=== PATIENT | female | born 1950 | race Caucasian/White ===

== ENCOUNTER 2019-11-27 23:54 | Emergency (ER) | payer MEDICARE, SELFPAY ==
--- NOTE | ~2019-11-27 | XR_ITS ---
EXAMINATION: XR ankle LT min 3V DATE: 11/28/2019 01:34 INDICATION: Left ankle pain. Fall. TECHNIQUE: 4 views of left ankle were obtained. COMPARISON: None. FINDINGS: Bone alignment is normal. No acute fracture. There are osteochondral lesions of medial and lateral aspects of the talar dome. There is mild midfoot osteoarthritis. There are enthesophytes at t he posterior and plantar aspects of calcaneal tuberosity and at lateral malleolus. IMPRESSION: 1. Osteochondral lesions of the talar dome. 2. Mild midfoot osteoarthritis. Reviewed, dictated and finalized at location A.
--- NOTE | ~2019-11-27 | XR_ITS ---
EXAMINATION: XR wrist LT min 3V DATE: 11/28/2019 00:58 INDICATION: Left wrist pain. Fall. TECHNIQUE: 4 views of left wrist were obtained. COMPARISON: None. FINDINGS: Bone alignment is normal. No fracture. There is mild osteoarthritis of distal radioulnar flaca int, triscaphe joint, and first carpometacarpal joint. There is mild osteoarthritis of first metacarp ophalangeal joint and moderate osteoarthritis of first interphalangeal joint. IMPRESSION: 1. Polyarticular osteoarthritis. Reviewed, dictated and finalized at location A.
--- NOTE | ~2019-11-27 | XR_ITS ---
EXAMINATION: XR knee RT min 4V DATE: 11/28/2019 00:57 INDICATION: Right knee pain and swelling. Fall. TECHNIQUE: 4 views of right knee were obtained. COMPARISON: None. FINDINGS: Bone alignment is normal. No fracture. There is mild tricompartmental osteoarthritis. No kn ee joint effusion. There is medial soft tissue swelling. IMPRESSION: 1. Mild right knee osteoarthritis. Reviewed, dictated and finalized at location A.
--- NOTE | ~2019-11-27 | CT_ITS ---
EXAMINATION: CT brain wo con DATE: 11/28/2019 00:46 INDICATION: Head injury. TECHNIQUE: Computed tomography (CT) of the head was performed without intravenous contrast. The mA wa s adjusted according to patient size. Iterative reconstruction technique was employed. The dose-lengt h product was 605.33 mGy-cm. COMPARISON: None FINDINGS: There is no intracranial hemorrhage, acute infarction, or abnormal intracranial mass lesion . The ventricles are normal in size. There are likely changes of ocular lens replacement surgeries. T here is left periorbital soft tissue swelling with hematoma. The mastoid air cells are normal. IMPRESSION: 1. Normal brain. 2. Left periorbital soft tissue swelling with hematoma. No orbital involvement. Reviewed, dictated and finalized at location A.
[2019-11-27 23:57] VITALS: BP 218/78; PULSE 73; RESP 14; TEMP 36.6; O2SAT 99
[2019-11-28 00:09] VITALS: RESP 18; O2SAT 99
--- NOTE | 2019-11-28 00:18 | ED.FALL ---
HPI - Fall General Chief Complaint: Fall Stated Complaint: fall Time Seen by Provider: 11/28/19 00:10 Source: RN notes reviewed History of Present Illness HPI Narrative: Patient presents emergency department from home for fall. Patient states approximately 3 minutes prior to arrival she was walking her garage when she tripped over a rope. States that time she fell to the ground striking the left side of her head. Denies any loss of consciousness but notes a laceration over her left eyebrow as well as pain to her left wrist and right knee. Patient states she was aspirating 1 mg denies any blood thinner use denies any chest pain shortness of breath abdominal pain nausea vomiting numbness or tingling in the extremities or any other symptoms Related Data Home Medications Medication Instructions Recorded Confirmed aspirin [Adult Low Dose Aspirin] 81 mg PO DAILY 04/14/19 04/14/19 budesonide-formoterol [Symbicort] 2 puff INHALATION Q12H 04/14/19 04/14/19 insulin glargine [Lantus U-100 25 unit SUBCUT HS 04/14/19 04/14/19 Insulin] insulin lispro [Humalog U-100 1 sliding scale dose SUBCUT 04/14/19 04/14/19 Insulin] USEASDIRECTD losartan 100 mg PO DAILY 04/14/19 04/14/19 nebivolol [Bystolic] 10 mg PO DAILY 04/14/19 04/14/19 pantoprazole 40 mg PO QAM 04/14/19 04/14/19 simvastatin 10 mg PO DAILY 04/14/19 04/14/19 Allergies Allergy/AdvReac Type Severity Reaction Status Date / Time No Known Allergies Allergy Verified 11/28/19 00:07 Review of Systems Review of Systems: Narrative: Gen.: Denies fevers or chills Eyes: Denies eye pain or visual change ENT: Denies epistaxis Respiratory: Denies shortness of breath or cough CV: Denies chest pain or palpitations GI: Denies abdominal pain nausea, emesis or diarrhea Musculoskeletal: See HPI Neuro: Denies numbness, tingling, weakness or focal weakness denies loss of consciousness Skin: Denies rash Except as documented, all other systems reviewed and negative FORMERLY [facility], [facility] Past Medical History Medical History (Updated 11/28/19 @ 04:00 by Dominick Donnelly DO) Diabetes mellitus Hypertension Social History Social History (Updated 11/28/19 @ 00:20 by Dominick Donnelly DO) Smoking status: Never smoker Exam Narrative: Exam Narrative: APPEARANCE: Well appearing, no apparent distress, well-nourished. HEENT: normocephalic TMs clear bilaterally. Large area of swelling and ecchymosis over the left eyebrow and the left eyelid overlying 5.5 cm L-shaped laceration that is linear and deep with moderate venous bleeding and no foreign body, oral mucosa moist. No tenderness over bilateral zygomatic arch. Full range of motion of jaw without pain. EYES: PERRL no conjunctival erythema EOMI NECK: Supple. No midline tenderness to palpation. Full range of motion without pain RESPIRATORY: No respiratory distress. Clear to auscultation bilaterally CARDIOVASCULAR: Regular rate and rhythm without murmurs rubs or gallops. ABDOMINAL: Soft, nontender, nondistended, no rebound or guarding MUSCULOSKELETAl: Moves all extremities. No tenderness to palpation of right upper extremity left lower extremity, tender palpation of the left dorsal wrist mild swelling with no ecchymosis pain with flexion of the wrist no tenderness of the left elbow or shoulder, radial pulse 2+, neurovascular intact, tender palpation of the right anterior knee with swelling and ecchymosis present, no tenderness of the medial or lateral knee, no tenderness of the right hip or ankle, dorsalis pedis pulse 2+ neurovascular intact Back: No midline thoracic or lumbar tenderness to palpation Pelvis: Stable, nontender NEURO: Awake and alert ?3. Follows commands. Speech normal. No focal deficits. SKIN:: Warm, dry. Normal Color Course Course Emergency Course: On initial x-rays patient noted pain in the left ankle and will x-ray Patient able to get up and ambulate in the ED with no difficulty Discussed with patient results of workup and diagnosis. Disc
[2019-11-28 01:15] VITALS: BP 199/74; PULSE 64; RESP 17; O2SAT 97
[2019-11-28 02:36] VITALS: BP 185/70; PULSE 72; RESP 18; O2SAT 99
--- NOTE | 2019-11-28 02:53 | PC.NURSE ---
wound cleansed and dressed at this time. pt resting on stretcher with family member at bedside. pt denies any needs/concerns. will continue to monitor pt for baseline status changes.
--- NOTE | 2019-11-28 03:50 | PC.NURSE ---
pt ambulated independently without difficulty at this time
[2019-11-28 04:21] VITALS: BP 171/88; PULSE 78; RESP 18; O2SAT 98
== END 2019-11-28 04:23 | disposition home or self-care (01) ==
PROVIDERS: Emergency Provider Emergency Medicine; PCP Family Medicine
DX: S01.112A Laceration without foreign body of left eyelid and periocular area, initial encounter (principal); S60.212A Contusion of left wrist, initial encounter; S80.01XA Contusion of right knee, initial encounter; E11.9 Type 2 diabetes mellitus without complications; I10 Essential (primary) hypertension; Z79.82 Long term (current) use of aspirin; Z79.4 Long term (current) use of insulin; W18.09XA Striking against other object with subsequent fall, initial encounter
CPT/HCPCS: 12014; 12053; 70450; 73110; 73564; 73610; 99284

== ENCOUNTER 2021-10-09 03:43 | Observation (INO) | payer MEDICARE, SELFPAY ==
[2021-10-09] VITALS (17 sets, daily range): BP systolic 116–151; BP diastolic 45–58; PULSE 61–80; RESP 17–28; TEMP 36.6–37.5; O2SAT 91–98; BMI 34.7
--- NOTE | ~2021-10-09 | US_ITS ---
US venous doppler [facility] DATE: 10/09/2021 14:48 INDICATION: Positive d-dimer TECHNIQUE: Real-time and color flow imaging and Doppler analysis of the veins of both lower extremiti es COMPARISON: None FINDINGS: The greater saphenous veins are patent. There is spontaneous and phasic flow and normal aug mentation and color flow signal and normal compression of the deep veins of both lower extremities. IMPRESSION: No evidence of deep venous thrombosis of the lower extremities Reviewed, dictated and finalized at Location A. Reviewed, dictated and finalized at location A.
--- NOTE | ~2021-10-09 | XR_ITS ---
XR chest 2V DATE: 10/09/2021 04:32 INDICATION: Cough, shortness of breath TECHNIQUE: PA and lateral views COMPARISON: None FINDINGS: Normal heart size. No hilar or mediastinal enlargement. No pulmonary infiltrate or consolid ation, pleural effusion or pulmonary vascular congestion or pneumothorax. Osteopenia. IMPRESSION: No active cardiopulmonary disease Reviewed, dictated and finalized at location A.
--- NOTE | ~2021-10-09 | XR_ITS ---
XR chest 2V DATE: 10/10/2021 10:09 INDICATION: Cough TECHNIQUE: PA and lateral views COMPARISON: 11/05/2021 2 view chest FINDINGS: Normal heart size. No hilar or mediastinal enlargement. No pulmonary infiltrate or consolid ation, pleural effusion or pulmonary vascular congestion or pneumothorax. Osteopenia. IMPRESSION: No active cardiopulmonary disease Reviewed, dictated and finalized at location A.
--- NOTE | 2021-10-09 03:52 | PC.NURSE ---
Pt c/o cough x 4 days with sore throat. Reports granddaughter exposed to COVID last Sunday. Pt reports cough nonproductive.
--- NOTE | 2021-10-09 03:56 | ECG_ITS ---
Measurements Intervals [place] Rate: 68 P: 13 CO: 167 QRS: 1 QRSD: 91 T: 31 QT: 376 QTc: 402 Interpretive Statements SINUS RHYTHM CONSIDER INFERIOR INFARCT, AGE INDETERMINATE BASELINE ARTIFACT- I, II, AVR, AVL, AVF, V1 ABNORMAL ECG Electronically Signed On 10-09-2021 6:23:27 CDT by Endy Han D.O.
--- NOTE | 2021-10-09 04:03 | ED.GENADULT ---
HPI - General Adult General Chief complaint: Shortness of Breath/Dyspnea Stated complaint: Cough, throat burning, sob Time Seen by Provider: 10/09/21 03:47 History of Present Illness HPI narrative: 71-year-old female presenting to the emergency department for evaluation of cough sore throat and associated shortness of breath. Patient states that she began developing a cough on Sunday and then over the course of the day Sunday she began developing some shortness of breath and pain into her shoulders. Related Data Home Medications Medication Instructions Recorded Confirmed aspirin 81 mg tablet,delayed 81 mg PO DAILY 04/14/19 10/09/21 release (Adult Low Dose Aspirin) insulin glargine 100 unit/mL 25 unit subcut HS 04/14/19 10/09/21 subcutaneous solution (Lantus U-100 Insulin) insulin lispro 100 unit/mL 1 sliding scale dose subcut 04/14/19 10/09/21 subcutaneous solution (Humalog USEASDIRECTD U-100 Insulin) losartan 100 mg tablet 100 mg PO DAILY 04/14/19 10/09/21 nebivolol 10 mg tablet (Bystolic) 10 mg PO DAILY 04/14/19 10/09/21 pantoprazole 40 mg tablet,delayed 40 mg PO QAM 04/14/19 10/09/21 release Allergies Allergy/AdvReac Type Severity Reaction Status Date / Time No Known Allergies Allergy Verified 10/09/21 03:53 Review of Systems Review of Systems: CONSTITUTIONAL: Denies fever, chills, or sweats. EYES: Denies visual changes, redness, or discharge. ENT: Denies rhinorrhea, congestion, sore throat, or otalgia. CARDIOVASCULAR: Shortness of breath RESPIRATORY: Denies cough or dyspnea. GASTROINTESTINAL: Denies abdominal pain, nausea, vomiting, or diarrhea. GENITOURINARY: Denies dysuria or hematuria. SKIN: Denies rash or itching. MUSCULOSKELETAL: Denies back pain, joint pain, or myalgia. NEUROLOGIC: Denies headache, numbness, or weakness. [facility] Past Medical History Medical History (Updated 10/09/21 @ 13:29 by Juan Llanos MD) CKD (chronic kidney disease) Diabetes mellitus Hyperlipidemia Hypertension Long COVID Macular edema Surgical History Surgical History (Updated 10/09/21 @ 13:25 by Juan Llanos MD) History of lumbar surgery History of total abdominal hysterectomy and bilateral salpingo-oophorectomy Family History Family History Father Prostate carcinoma Alzheimer's dementia Mother History of blood clots Cerebrovascular accident Mother No problems noted. Social History Social History (Updated 10/09/21 @ 13:26 by Juan Llanos MD) Social History: Lifelong nonsmoker. No alcohol or drug use. She lives at home with her son, granddaughter and grandson. She wishes to be a DNR. She nominates her daughter Ty to be the individual would make medical decisions for her if she is unable. Smoking status: Never smoker Alcohol intake: never Substance use: never Spiritual care concerns: No Exam Narrative: APPEARANCE: Well appearing, no pain, no distress, well-nourished. HEAD: normocephalic, atraumatic. EYES: PERRLA/EOMI, conjunctivae clear. NOSE: Normal no drainage EARS:TMS clear with good light reflex. THROAT: Pharynx clear, no exudate. NECK: Supple. No adenopathy, no masses. RESPIRATORY: Airway patent, respirations nonlabored. Clear to auscultation bilaterally, no rales, rhonchi, wheezing. CARDIOVASCULAR: Regular rate and rhythm without murmurs rubs or gallops. ABDOMINAL: Soft, nontender, nondistended, normal bowel sounds MUSCULOSKELETAL: Moves all extremities. Strength/ROM intact, No edema, No calf tenderness. NEURO: Alert. Cranial nerves II through XII intact. SKIN: Warm, dry. Normal Color Course Course Emergency Course: Patient reports she is poorly compliant with her diabetes. Patient with hyperglycemia. Patient was treated with IV fluids and IV insulin. Patient's blood sugar did improve. No evidence of DKA. Patient hemoglobin A1c was greater than 12.5. Patient's D-dimer wa
[2021-10-09 04:09] LABS: Basophils Absolute Auto 0.1 K/mm3 (0.0-0.1); Basophils Percent Auto 0.8 % (0.2-1.2); Eosinophils Absolute Auto 0.2 K/mm3 (0-0.3); Eosinophils Percent Auto 2.5 % (0-4.4); Hematocrit 34.9 % (37.0-47.0); Hemoglobin 11.2 g/dL (12.0-15.0); Immature Granulocyte Absolute 0.03 K/mm3 (0.00-0.031); Immature Granulocyte Percent A 0.4 % (0-0.5); Lymphocytes Absolute Auto 1.24 K/mm3 (0.9-3.2); Mean Corpuscular HGB Conc 32.1 g/dl (32-36); Mean Corpuscular Volume 90.4 fl (80-100); Mean Platelet Volume 11.7 fl (7.4-10.4); Monocytes Absolute Auto 0.6 K/mm3 (0.1-0.6); Monocytes Percent Auto 7.7 % (2.6-8.5); Neutrophils Absolute Auto 6.1 K/mm3 (1.3-6.7); Neutrophils Percent Auto 73.6 % (45.5-73.1); Platelet Count Result 161 k/mm3 (150-375); Red Blood Count 3.86 M/mm3 (4.2-5.4); Red Cell Distribution Width 13.8 % (11.5-14.5); White Blood Count 8.3 K/mm3 (4.5-10.0)
[2021-10-09 04:53] LABS: D Dimer 0.56 ug/mL (<0.48)
[2021-10-09 05:01] LABS: Influenza A QL RT-PCR Negative (Negative); Influenza B QL RT-PCR Negative (Negative); SARS-CoV-2 RNA PCR Negative
[2021-10-09 05:16] LABS: Alanine Aminotransferase 13 U/L (6-35); Albumin Level 3.9 g/dL (3.5-5.1); Alkaline Phosphatase 109 U/L (38-126); Anion Gap 8 mmol/L (8-16); Aspartate Amino Transferase 19 U/L (14-36); Bilirubin,Total 1.1 mg/dL (0.2-1.3); Blood Urea Nitrogen 53 mg/dL (7-17); Calcium 8.3 mg/dL (8.4-10.2); Carbon Dioxide 25 mmol/L (22-30); Chloride 99 mmol/L (98-107); Estimated Glomerular Filt Rate 19; Glucose 547 mg/dL (65-110); Potassium 4.4 mmol/L (3.4-5.0); Sodium 132 mmol/L (137-145)
[2021-10-09] MEDS: SODIUM CHLORIDE 0.9% IV 1,000 ML 999 ML IV CONT (05:27)
[2021-10-09] MEDS: INSULIN HUMAN REGULAR (*BKC) 100 UNITS/ML IV PUSH (05:29)
[2021-10-09 05:51] LABS: Hemoglobin A1C 12.5 % (<5.7)
[2021-10-09 05:53] LABS: Beta-Hydroxybutyrate/Acetoacetate 0.24 mmol/L (0.02-0.27)
[2021-10-09 05:58] LABS: Troponin I 0.014 ng/mL (0.000-0.034)
[2021-10-09] MEDS: PANTOPRAZOLE SODIUM IV 40 MG VIAL IV PUSH (06:34)
[2021-10-09 06:39] LABS: Glucose Point of Care 367 mg/dl (65-105)
--- NOTE | 2021-10-09 07:18 | PC.NURSE ---
Assumed care from Stephanie. Pt ambulatory to the bathroom with tech at this time
[2021-10-09] MEDS: SODIUM CHLORIDE 0.9% IV 1,000 ML 125 ML IV CONT (08:49)
--- NOTE | 2021-10-09 10:11 | PC.NURSE ---
gave report to Moe in the IMU pt to transfer to room 204
[2021-10-09 10:19] LABS: Glucose Point of Care 260 mg/dl (65-105)
--- NOTE | 2021-10-09 10:42 | ADMGEN ---
This patient, Una Villegas, was admitted to IMU Room 204-01. Patient/family oriented to hospital policies and general routines including ID bracelet, bed and alarms, visiting hours, pain management, procedures, bathroom and other care routines, personal items, smoking policy, room service/diet, and visiting hours. Information on how to activate the Rapid Response Team has been discussed. Patient/Family are encouraged to report perceived risks to care and to ask questions if they do not understand what they are told or what they should do.
[2021-10-09 11:04] LABS: Glucose Point of Care 259 mg/dl (65-105)
--- NOTE | 2021-10-09 12:24 | PM.IMHP ---
H&P: HPI History of Present Illness Date/Time: 10/09/21 12:24 Chief Complaint: Shortness of breath Narrative: 71yo female with hx of DM and HTN here for shortness of breath. Patient had chronic dyspnea on exertion that worsened after about a COVID in March 2020. Patient states that she was hospitalized on remdesivir for 5 days but did not require oxygen. Family states patient was hallucinating. Since that time patient's dyspnea on exertion has worsened significantly. She has had a battery of tests including extensive cardiac evaluation about a year ago including heart catheterization which was negative for coronary disease. Her doctors have told her she has long COVID. Patient did have a COVID vaccine in May 2020 but had a reaction with abdominal and leg edema. She has not had a 2nd vaccine. Patient can walk in her house but is unable to do chores. She is able to drive her granddaughter to school and walker into the building but has significant dyspnea on exertion with this. She is not on home oxygen. She does not use a walker or cane. Patient was feeling at her baseline up until about 4 days ago when she developed a dry cough with pleuritic rib pain. She also has pain between her shoulder blades. This been no recent travel. No sick contacts. Her granddaughter age 66 years old and grandson H 20 months both live with her. Granddaughter has been feeling well but the grandson to have pinkeye and bilateral ear infections. Patient has been eating well. She has CKD stage 3 with a creatinine runs in the had ?2.[address] Steve Castaneda at [facility] for her renal failure. Her renal failure is related to her diabetes. She freely admits that her diabetes is poorly controlled. She has a DEXA, monitor that ?reads high quite a lot?. She takes Lantus 25 units at bedtime and Humalog 4-5 units at mealtimes. She does not use the Humaol regularly since it causes cramping in her feet. She does not states explicitly that she has retinopathy but does have macular edema that is being treated with injections. She has numbness and tingling in her hands and feet at times. Patient's cough worsened 1 day prior to admission. She has not taken any medications for the cough at home. She did not contact her doctor. She has not been on any recent antibiotics. No recent hospitalizations. She has been eating well. No fever or chills. She does have abdominal pain from the cough. No rash. She is having a sore throat. She no longer takes the Symbicort and has been off this for 2 years. No nausea or vomiting but did have some dry he use today which is new. Been having loose stools. No melena, hematochezia, dysuria or hematuria. Because of the worsening cough, patient presented to the emergency room for evaluation. In the emergency room, patient was hemodynamically stable. She was 98% on room air. CBC showed mild anemia otherwise normal. D-dimer was mildly elevated 0.56. BUN was 53 with creatinine 2.5. Glucose was 547. LFTs are normal. Beta hydroxybutyrate level was normal. Troponin was negative. A1c was 12.5. COVID test was negative. Influenza was negative. Chest x-ray was clear. EKG showed normal sinus rhythm with possible old inferior KS. she was given a dose of insulin started on IV fluids. She was given a dose of Protonix and Zofran. She was started on Lovenox therapeutic dosing due to the mildly elevated D-dimer. She was admitted for further care. Review of Systems Review of Systems: All systems reviewed & are unremarkable except as noted in HPI and below PMFSH Past Medical History Medical History (Updated 10/09/21 @ 13:29 by Juan Llanos MD) CKD (chronic kidney disease) Diabetes mellitus Hyperlipidemia Hypertension Long COVID Macular edema Surgical History Surgical History (Updated 10/09/21 @ 13:25 by Juan Llanos MD) History of lumbar surgery History of total abdominal hysterectomy and bilateral s
[2021-10-09] MEDS: ONDANSETRON INJ 4 MG/2 ML VIAL IV PUSH (12:40)
[2021-10-09] MEDS: ONDANSETRON INJ 4 MG/2 ML VIAL (12:43)
[2021-10-09] MEDS: AZITHROMYCIN 250 MG TABLET 500 MG PO (14:41)
[2021-10-09] MEDS: ENOXAPARIN 100 MG/ML SYRINGE 94 MG SUB-Q (14:42)
[2021-10-09] MEDS: guaiFENesin/CODEINE (*CRX) 200/20 MG 10 ML SYRUP PO (14:42)
[2021-10-09 16:16] LABS: Glucose Point of Care 217 mg/dl (65-105)
[2021-10-09] MEDS: ALBUTEROL SULFATE (*SP) AEROSOL 1 PUFF 2 PUFF INHALATION (20:31)
[2021-10-09 20:55] LABS: Glucose Point of Care 167 mg/dl (65-105)
[2021-10-09] MEDS: INSULIN GLARGINE (*BKC) 100 UNITS/ML 25 UNITS SUB-Q (22:08)
[2021-10-09] MEDS: guaiFENesin 12 HR 600 MG TABCR PO (22:41)
[2021-10-10] VITALS (11 sets, daily range): BP systolic 101–154; BP diastolic 40–54; PULSE 63–94; RESP 16–20; TEMP 36.4–37.4; O2SAT 91–96
[2021-10-10 05:28] LABS: Basophils Percent Auto 0.4 % (0.2-1.2); Eosinophils Absolute Auto 0.3 K/mm3 (0-0.3); Eosinophils Percent Auto 4.2 % (0-4.4); Hematocrit 33.6 % (37.0-47.0); Hemoglobin 10.4 g/dL (12.0-15.0); Immature Granulocyte Absolute 0.02 K/mm3 (0.00-0.031); Immature Granulocyte Percent A 0.3 % (0-0.5); Immature Platelet Fraction Pct 6.2 % (0.9-11.2); Lymphocytes Absolute Auto 1.41 K/mm3 (0.9-3.2); Lymphocytes Percent Auto 19.6 % (18.3-44.2); Mean Corpuscular Hemoglobin 29.1 pg (26-34); Mean Corpuscular Volume 94.1 fl (80-100); Mean Platelet Volume 11.6 fl (7.4-10.4); Monocytes Absolute Auto 0.6 K/mm3 (0.1-0.6); Monocytes Percent Auto 7.7 % (2.6-8.5); Neutrophils Absolute Auto 4.9 K/mm3 (1.3-6.7); Neutrophils Percent Auto 67.8 % (45.5-73.1); Platelet Count Result 138 k/mm3 (150-375); Red Blood Count 3.57 M/mm3 (4.2-5.4); Red Cell Distribution Width 14.3 % (11.5-14.5); White Blood Count 7.2 K/mm3 (4.5-10.0)
[2021-10-10 05:37] LABS: Albumin Level 3.3 g/dL (3.5-5.1); Anion Gap 4 mmol/L (8-16); Blood Urea Nitrogen 33 mg/dL (7-17); CRP 2.5 mg/dL (<1.0); Calcium 8.1 mg/dL (8.4-10.2); Carbon Dioxide 25 mmol/L (22-30); Chloride 111 mmol/L (98-107); Estimated CRCL calculation 30 ml/min; Estimated Glomerular Filt Rate 28; Glucose 96 mg/dL (65-110); Phosphorus 3.5 mg/dL (2.5-4.5); Potassium 4.2 mmol/L (3.4-5.0); Sodium 140 mmol/L (137-145)
[2021-10-10] MEDS: ALBUTEROL SULFATE (*SP) AEROSOL 1 PUFF 2 PUFF INHALATION ×2 (08:09→11:27)
[2021-10-10 08:23] LABS: Glucose Point of Care 86 mg/dl (65-105)
[2021-10-10] MEDS: LOSARTAN POTASSIUM 100 MG TABLET PO (09:26)
[2021-10-10] MEDS: ASPIRIN 81 MG ENTERIC TABLET PO (09:26)
[2021-10-10] MEDS: PANTOPRAZOLE 40 MG TABLET PO (09:26)
[2021-10-10] MEDS: guaiFENesin 12 HR 600 MG TABCR PO (09:26)
[2021-10-10] MEDS: NEBIVOLOL HCL 5 MG TABLET 10 MG PO (09:26)
[2021-10-10] MEDS: FLUTICASONE PROPIONATE 0.05% NA SPR 16 GM BTL (*BKC) 1 SPRAY NASAL (09:27)
[2021-10-10] MEDS: AZITHROMYCIN 250 MG TABLET PO (11:04)
[2021-10-10 11:38] LABS: Glucose Point of Care 140 mg/dl (65-105)
--- NOTE | 2021-10-10 12:59 | PM.DS ---
DS: Admitting Diagnosis Discharge Date 10/10/21 Admitting Diagnosis Cough, shortness of breth DS: Discharge Diagnosis Discharge Diagnosis (1) Viral infection of lower respiratory system: Code(s): J22 - Unspecified acute lower respiratory infection; B97.89 - Other viral agents as the cause of diseases classified elsewhere Status: Acute (2) Cough: Code(s): R05.9 - Cough, unspecified Status: Acute (3) Acute dyspnea: Code(s): R06.00 - Dyspnea, unspecified Status: Acute (4) DOMINIC (acute kidney injury): Code(s): N17.9 - Acute kidney failure, unspecified Status: Acute (5) Hyperglycemia: Code(s): R73.9 - Hyperglycemia, unspecified Status: Acute (6) Positive D dimer: Code(s): R79.89 - Other specified abnormal findings of blood chemistry Status: Acute (7) Long COVID: Code(s): U09.9 - Post COVID-19 condition, unspecified Status: Acute (8) Diabetes mellitus: Code(s): E11.9 - Type 2 diabetes mellitus without complications Status: Acute (9) Hypertension: Code(s): I10 - Essential (primary) hypertension Status: Acute (10) CKD (chronic kidney disease): Code(s): N18.9 - Chronic kidney disease, unspecified Status: Acute DS: Summary Hospital Course Hospital Course: Patient presents with worsening dry cough. Chest x-ray was clear. No fevers or elevated white count. No hypoxia. Suspect viral etiology or possibly pertusses related to her exposure to her grandchildren who live in the home with her. Creatinine is roughly at baseline at at 2.5 (patient states her Cr runs at 2.4 but no old labs here to verify). She received IV fluids and Cr improved to 1.8 to suggest that she was dehydrated (probably related to the viral illness and from her uncontrolled DM). We provided cough medicine with benefit.Viral panel ordered. RSV was negative. Pertussis being considered so testing performed and she was started on azithromycin. Repeat chest x-ray again showing no acute findings. DDimer was slightly positive at 0.56 (Nml <0.048). Lower extremity venous Dopplers was negative for DVT. We cannot do CTA given her renal failure but V/Q scan ordered from the ED. However, patient not hypoxic or tachycardic on admission and PERC rule not satisfied. Patient is also low risk by multiple PE scales. Overall felt the mildly elevated DDimer related to her CKD/DOMINIC. Glucose was well controlled here with diabetic diet and resuming her home regiment. A1c 12.9. She was educated about the benefits of good glycemic control. Patient feels much better and is requesting discharge home. She overall did well and was able to be discharged home on 10/10/21 Status at Discharge Cognitive/behavioral status at discharge: Stable Time Spent with Patient Time attestation: Total time spent providing and/or coordinating discharge services: 35 minutes Time spent: Greater than 30 minutes Exam Narrative: AF 98.6 129/41 72 19 91% ra Gen - wNARD Chest - clear posteriroly, few scattered expiratory wheezes anteriorly, nml RR CV - RRR S1/S2; Tele showing no signifincat dysrhythmias Abd - soft, NT/ND, +BS Ext - no pedal edema Neuro - nonfocal Psych - nml mood and affect Skin - warm and dry. DS: Data Data Completed and Pending Labs on day of discharge: Labs from last 24 hours 10/10/21 10/10/21 10/10/21 11:23 07:52 05:02 WBC RBC Hgb Hct MCV MCH MCHC RDW Plt Count MPV Immature Gran % (Auto) Neut % (Auto) Lymph % (Auto) [place] % (Auto) Eos % (Auto) Baso % (Auto) Lymph # (Auto) [place] # (Auto) Eos # (Auto) Baso # (Auto) Abs Immat Gran (auto) Absolute Neuts (auto) Absolute Nucleated RBC Nucleated RBC % % Immature Plt Fraction Sodium 140 Potassium 4.2 Chloride 111 H Carbon Dioxide 25 Anion Gap 4 L BUN 33 H D Creatinine 1.80 H Estim
[2021-10-14 07:55] LABS: B. pertussis Source Swab
--- NOTE | 2021-10-14 10:29 | PC.NURSE ---
B pertussis is negative. Dr. Romi lei.
--- NOTE | 2021-10-14 10:30 | PC.NURSE ---
Attempted to call patient to assess how she is feeling. No answer to phone call.
--- NOTE | 2021-10-17 09:50 | PC.NURSE ---
Spoke to patient this morning at 0900. Checking in to see how she is feeling. She states she is still coughing. The coughs rack her body. She has no stamina. Pt denies fever. She states she is coughing up clear,thick sputum. Instructed patient to follow up with her PCP. Patients states agreement and understanding. Dr. Llanos aware and agrees that pt should f/u with her PCP.
--- NOTE | 2021-10-25 10:08 | PC.NURSE ---
Viral Culture is negative. Dr. Romi lei.
== END 2021-10-10 14:04 | disposition home or self-care (01) ==
LOC: ANHED 07:21 → ANHIMU 10:20
PROVIDERS: Emergency Medicine; Admitting Provider Internal Medicine; Emergency Provider Emergency Medicine; PCP Family Medicine; Visit Provider Internal Medicine
DX: J22 Unspecified acute lower respiratory infection (principal); B97.89 Other viral agents as the cause of diseases classified elsewhere; N17.9 Acute kidney failure, unspecified; U09.9 Post COVID-19 condition, unspecified; E11.65 Type 2 diabetes mellitus with hyperglycemia; Z79.82 Long term (current) use of aspirin; N18.9 Chronic kidney disease, unspecified; R79.89 Other specified abnormal findings of blood chemistry; E78.5 Hyperlipidemia, unspecified; E11.22 Type 2 diabetes mellitus with diabetic chronic kidney disease; I12.9 Hypertensive chronic kidney disease with stage 1 through stage 4 chronic kidney disease, or unspecified chronic kidney disease; Z79.4 Long term (current) use of insulin; Z20.822 Contact with and (suspected) exposure to COVID-19
CPT/HCPCS: 36415; 71046; 80053; 80069; 82010; 82948; 83036; 84484; 85025; 85055; 85380; 86140; 87081; 87420; 87502; 87798; 93005; 93970; 94640; 96361; 96372; 96374; 96375; 97161; 97165; 99285; A9270; C9113; C9803; G0378; J1650; J1815; J2405; J7030; U0003; U0005